=== PATIENT | female | born 1940 | race Caucasian/White ===

== ENCOUNTER 2018-09-19 18:36 | Emergency (ER) | payer MEDICARE ==
[~2018-09-19] VITALS: Ht 160 cm; Wt 68.0 kg
--- OUTSIDE RECORDS SUMMARY | 2018-09-19 18:39 | XMS REPORT | Summary of Care ---
Author Organization Unknown Address Unknown Phone Unavailable Encounter Dates Location Diagnoses Discharge Providers [facility] Reason for Visit ROUTINE Problem List No data available for this section Allergies, Adverse Reactions, Alerts No data available for this section Medications No data available for this section Medications Administered During Your Visit No data available for this section Immunizations No data available for this section
--- OUTSIDE RECORDS SUMMARY | 2018-09-19 18:39 | XMS REPORT | Summary of Care ---
Author Organization Unknown Address Unknown Phone Unavailable Encounter HQ Encntr_alias(ALEKSANDAR) [id number] Date(s): 08/11/14 - 08/11/14 [facility] [address] [place] [address]- Discharge Disposition: Home Physician Attending: Valery Rivas MD Physician_Referring: Valery Rivas MD Vital Signs No data available for this section Problem List No data available for this section Allergies, Adverse Reactions, Alerts No data available for this section Medications No data available for this section Results No data available for this section Immunizations No data available for this section Procedures No data available for this section Social History No data available for this section Assessment and Plan No data available for this section
--- OUTSIDE RECORDS SUMMARY | 2018-09-19 18:39 | XMS REPORT | Summary of Care ---
Author Author [facility] Organization [facility] Address Unknown Phone Unavailable Encounter HQ Encntr_alias(FIN) [id number] Date(s): 08/25/15 - 08/25/15 [facility] [address] [place] [address]- Discharge Disposition: Home Attending Physician: Valery Rivas MD Referring Physician: Valery Rivas MD Vital Signs No data [...]
--- OUTSIDE RECORDS SUMMARY | 2018-09-19 18:39 | XMS REPORT | Summary of Care ---
Author Author [facility] Organization [facility] Address Unknown Phone Unavailable Encounter HQ Encntr_alias(FIN) [id number] Date(s): 09/06/16 - 09/06/16 [facility] [address] [place] [address]- Discharge Disposition: Home or Self Care Attending Physician: Valery Rivas MD Referring Physician: [...]
--- OUTSIDE RECORDS SUMMARY | 2018-09-19 18:39 | XMS REPORT | Continuity of Care Document ---
Author Author [facility] Interface Address Unknown Phone Unavailable Problems Problem Status Onset Date Classification Date Reported Comments Source Encounter for screening mammogram for malignant neoplasm of breast 09/19/2017 12/18/2017 [facility] ROUTINE Active 08/20/2017 [facility] DX: ROUTINE SCREENING Active 08/28/2016 [facility] ROUTINE MAMMOGRAM Active 08/17/2015 [facility] SCREENING Active 08/05/2014 [facility] ENCNTR SCREEN MAMMOGRAM FOR MALIGNANT NE Active [facility] Medications Medication Details Route Status Patient Instructions Ordering Provider Order Date Source Allergies, Adverse Reactions, Alerts Substance Category Reaction Severity Reaction type Status Date Reported Comments Source Immunizations Immunization Date Given Site Status Last Updated Comments Source Results Order Name Results Value Reference Range Date Interpretation Comments Source Breast Mammo Scrn JOVON w avni incl CAD MA Breast Mammo Scrn JOVON w avni incl CAD MA BILATERAL DIGITAL SCREENING MAMMOGRAM 3D/2D WITH CAD: 09/11/2017 CLINICAL: /Screen. Current study was evaluated with a Computer Aided Detection (CAD) system. COMPARISON:Comparison is made to exams dated: 09/06/2016 mammogram, 08/25/2015 mammogram, 08/11/2014 mammogram, 08/08/2013 mammogram, 08/08/2012 mammogram - [facility], and 07/24/2011 mammogram - [facility]. TECHNIQUE: Digital Breast Tomosynthesis was performed and utilized for Interpretation. Flow[employer] Version 1.3 was utilized for computer aided detection. FINDINGS: There are scattered fibroglandular densities in both breasts. There are benign appearing calcifications and densities in both breasts. No significant masses, calcifications, or other findings are seen in either breast. There has been no significant interval change. IMPRESSION: BENIGN RECOMMENDATION:There is no mammographic evidence of malignancy. A 1 year screening mammogram is recommended.(09/12/2018) This exam was interpreted at [id number] for [facility]. Juan see/yue:09/11/2017 13:16:41 Chemical Blender(s): Mylene Monroe [facility] letter sent: BI-RADS 1/2 Mammogram BI-RADS: 2 Benign 09/11/2017 - - Read by: Juan Kelly MD Dictated Date/time: 09/11/17 13:16 Electronically Signed by: Juan Kelly MD 09/11/17 13:16 FINAL REPORT [facility] Breast Mammo Scrn JOVON incl CAD MA Breast Mammo Scrn JOVON incl CAD MA - BREAST MAMMO SCRN JOVON INCL CAD MA BILATERAL DIGITAL SCREENING MAMMOGRAM WITH CAD: 09/06/2016 CLINICAL: Other Screening Mammogram. Current study was evaluated with a Computer Aided Detection (CAD) system. Comparison is made to exams dated: 08/25/2015 mammogram, 08/11/2014 mammogram, 08/08/2013 mammogram, 08/08/2012 mammogram - [facility], 07/24/2011 mammogram and 07/22/2010 mammogram - [facility]. Current study contains 7 films. There are scattered fibroglandular densities in both breasts. There are benign appearing calcifications in both breasts. There also are benign appearing densities in both breasts. There are mole markers on the left breast. No significant masses, calcifications, or other findings are seen in either breast. There has been no significant interval change. IMPRESSION: BENIGN There is no mammographic evidence of malignancy. A 1 year screening mammogram is recommended. Walter Zheng sns/penrad:09/06/2016 14:25:22 Chemical Blender: Mylene Monroe, [facility] This exam was dictated and interpreted by [id number] for [facility] [place]. letter sent: Normal exam Mammogram BI-RADS: 2 Benign 09/06/2016 - - Read by: Walter Zhegn MD Dictated Date/time: 09/06/16 14:25 Electronically Signed by: Walter Zheng MD 09/06/16 14:25 FINAL REPORT [facility] Digital Mammo Screening Jovon MA Digital Mammo Screening Jovon MA - DIGITAL MAMMO SCREENING JOVON MA BILATERAL DIGITAL SCREENING MAMMOGRAM WITH CAD: 08/25/2015 CLINICAL: Routine. Current study was evaluated with a Computer Aided Detection (CAD) system. Comparison is made to exams dated: 08/11/2014 mammogram, 08/08/2013 mammogram, 08/08/2012 mammogram - [facility], 07/24/2011 mammogram, 07/22/2010 mammogram and 07/21/2009 mammogram - [facility]. There are scattered fibroglandular densities in both breasts. There are benign appearing calcifications in both breasts. There also are benign appearing densities in both breasts. No significant masses, calcifications, or other findings are seen in either breast. There has been no significant interval change. IMPRESSION: BENIGN There is no mammographic evidence of malignancy. A 1 year screening mammogram is recommended. Preston Espinal M.D. ap/penrad:08/25/2015 15:24:48 Chemical Blender: Haley Kim [facility] This exam was dictated and interpreted by [id number] for [facility]. letter sent: Normal [place] Mammogram BI-RADS: 2 Benign 08/25/2015 - - Read by: Preston Espinal MD Dictated Date/time: 08/25/15 15:24 Electronically Signed by: Preston Espinal MD 08/25/15 15:24 FINAL REPORT [facility] Digital Mammo Screening Jovon MA Digital Mammo Screening Jovon MA - DIGITAL MAMMO SCREENING JOVON MA BILATERAL DIGITAL SCREENING MAMMOGRAM WITH CAD: 08/11/2014 CLINICAL: Routine. Current study was evaluated with a Computer Aided Detection (CAD) system. Comparison is made to exams dated: 08/08/2013 mammogram, 08/08/2012 mammogram - [facility], 07/24/2011 mammogram, 07/22/2010 mammogram, 07/21/2009 mammogram and 07/01/2008 mammogram - [facility]. There are scattered fibroglandular densities in both breasts. There are benign calcifications and a density in the right breast. There also is a benign calcification in the left breast. No significant masses, calcifications, or other findings are seen in either breast. There has been no significant interval change. IMPRESSION: BENIGN There is no mammographic evidence of malignancy. A 1 year screening mammogram is recommended. Juan Kelly M.D. jt/penrad:08/12/2014 08:24:37 Chemical Blender: Heathre Beebe, [facility] This exam was dictated and interpreted by [id number] for [facility]. letter sent: Normal exam Mammogram BI-RADS: 2 Benign 08/11/2014 - - Read by: Juan Kelly MD Dictated Date/time: 08/12/14 08:24 Electronically Signed by: Juan Kelly MD 08/12/14 08:24 FINAL REPORT [facility] Digital Mammo Screening Jovon MA Digital Mammo Screening Jovon MA - DIGITAL MAMMO SCREENING JOVON MA BILATERAL DIGITAL SCREENING MAMMOGRAM WITH CAD: 08/08/2013 CLINICAL: Other Screening Mammogram. Current study was evaluated with a Computer Aided Detection (CAD) system. Comparison is made to exams dated: 08/08/2012 mammogram - [facility], 07/24/2011 mammogram, 07/22/2010 mammogram, 07/21/2009 mammogram, 07/01/2008 mammogram and 04/23/2007 mammogram - [facility]. There are scattered fibroglandular densities in both breasts. There are benign calcifications and a density in the right breast. There also is a benign calcification in the left breast. No significant masses, calcifications, or other findings are seen in either breast. There has been no significant interval change. IMPRESSION: BENIGN There is no mammographic evidence of malignancy. A screening mammogram in one year is recommended. Juan see/penrad:08/11/2013 08:27:45 Chemical Blender: Mylene Monroe, [facility] This exam was dictated and interpreted by [id number] at [facility], [facility]. letter sent: Normal exam Mammogram BI-RADS: 2 Benign 08/08/2013 - - Read by: Juan Kelly Dictated Date/time: 08/11/13 08:27 Electronically Signed by: Juan Kelly MD 08/11/13 08:27 FINAL REPORT [facility] Vital Signs Vital Sign Value Date Comments Source Encounters Location Location Details Encounter Type Encounter Number Reason For Visit Attending Provider ADM Date DC Date Status Source [facility] Outpatient [id number] Outpatient [id number] [facility] 08/11/2014 08/12/2014 [facility] Outpatient [id number] [facility] 08/25/2015 08/26/2015 [facility] Outpatient [id number] Valery Rivas 09/06/2016 09/07/2016 [facility] Outpatient [id number] Valery Rivas 09/11/2017 09/12/2017 [facility] Procedures Procedure Code Date Perfomer Comments Source
--- OUTSIDE RECORDS SUMMARY | 2018-09-19 18:39 | XMS REPORT | Summary of Care ---
Author Author [facility] Organization [facility] Address Unknown Phone Unavailable Encounter HQ Encntr_alias(FIN) [id number] Date(s): 09/11/17 - 09/11/17 [facility] [address] [place] [address]- Encounter Diagnosis Encounter for screening mammogram for malignant neoplasm of breast (Final) - 09/18/17 Discharge Disposition: Home or Self Care Attending [...]
[2018-09-19] MEDS ORDERED: TETANUS/DIPHTHERIA TOX ADULT 0.5 ML SYR IM ONE (18:45)
== END 2018-09-19 19:48 | disposition home or self-care (01) ==
LOC: ER 18:36
DX: S51.811A Laceration without foreign body of right forearm, initial encounter (principal); S51.851A Open bite of right forearm, initial encounter; W54.0XXA Bitten by dog, initial encounter; Y92.008 Other place in unspecified non-institutional (private) residence as the place of occurrence of the external cause; I10 Essential (primary) hypertension
CPT/HCPCS: 90471; 90714; 99283